=== PATIENT | female | born 1985 | race Caucasian/White ===

== ENCOUNTER 2021-04-12 07:25 | Emergency (ER) | payer BC ==
[2021-04-12 07:37] VITALS: BP 109/72; PULSE 52; TEMP 98.4; BMI 27.3
== END 2021-04-12 08:28 | disposition home or self-care (01) ==
LOC: FER 07:25
DX: S80.862A Insect bite (nonvenomous), left lower leg, initial encounter (principal)
CPT/HCPCS: 99282-25